=== PATIENT | male | born 1965 | race African-American/Black ===

== ENCOUNTER 2020-08-15 19:24 | Emergency (ER) | payer OTHER ==
[~2020-08-15] VITALS: Ht 167.6 cm; Wt 88.5 kg
[2020-08-15] MEDS ORDERED: CYCLOBENZAPRINE5 MG PO (20:36)
[2020-08-15] MEDS ORDERED: NORCO5 PO (20:36)
[2020-08-15 21:16] VITALS: BP 131/88
== END 2020-08-15 20:47 | disposition home or self-care (01) ==
LOC: ER 19:24
DX: M62.830 Muscle spasm of back (principal); M54.6 Pain in thoracic spine; M54.2 Cervicalgia; Z98.890 Other specified postprocedural states; V49.88XA Car occupant (driver) (passenger) injured in other specified transport accidents, initial encounter; Y93.89 Activity, other specified; Y92.413 State road as the place of occurrence of the external cause; Y99.9 Unspecified external cause status